=== PATIENT | male | born 1935 | race Caucasian/White ===

== ENCOUNTER → 2017-03-14 | Day surgery (SDC) | payer MEDICARE, BC ==
[~2017-03-14] MED LIST: AMLO5TAB2 PO; ASPI325T8 PO; CLOP75TA PO; CLOP75TA57 PO; DOCU-109 PO; GLIP5TAB10 PO; HYDR-2678 PO; IV RINGERS,LACTATED 1000ML 1,000 ML IV ONE; LIDOCAINE 2% PF Vial for OR 5 ML VIAL. ONE; LOVA10TA PO; METF-620 PO; OMEP20CA9 PO; PROPOFOL 20 ML IV ONE; SITA50TA PO; TAMS0.4C97 PO; VALS40TA2 PO
[2017-03-14 16:55] VITALS: BP 150/78
== END | disposition home or self-care (01) ==
LOC: ENDOS 14:41
PROVIDERS: ATTEND Internal Medicine Gastroenterology
DX: K29.50 Unspecified chronic gastritis without bleeding (principal); I25.10 Atherosclerotic heart disease of native coronary artery without angina pectoris; I10 Essential (primary) hypertension; K21.9 Gastro-esophageal reflux disease without esophagitis; E11.9 Type 2 diabetes mellitus without complications; F17.200 Nicotine dependence, unspecified, uncomplicated; Z87.442 Personal history of urinary calculi; Z86.39 Personal history of other endocrine, nutritional and metabolic disease; Z86.73 Personal history of transient ischemic attack (TIA), and cerebral infarction without residual deficits; Z86.69 Personal history of other diseases of the nervous system and sense organs; Z88.6 Allergy status to analgesic agent
CPT/HCPCS: 43235; J2704; J2001

== ENCOUNTER → 2017-10-24 | Outpatient (CLI) | payer MEDICARE, BC ==
[2017-10-24 12:30] LABS: ALBUMIN 3.8 g/dL (3.4-5.0); ALBUMIN/GLOBULIN RATIO 1.1 (1.0-1.7); ALK PHOS 96 U/L (46-116); ALT (SGPT) 20 U/L (16-63); ANION GAP 5 (6-14); AST (SGOT) 21 U/L (15-37); BLOOD UREA NITROGEN 15 mg/dL (8-26); BUN/CREATININE RATIO 15 (6-20); CALCIUM 9.5 mg/dL (8.5-10.1); CARBON DIOXIDE 29 mmol/L (21-32); CHLORIDE 105 mmol/L (98-107); GFR 71.4; GLUCOSE 186 mg/dL (70-99); POTASSIUM 4.3 mmol/L (3.5-5.1); SODIUM 139 mmol/L (136-145); TOTAL BILIRUBIN 0.5 mg/dL (0.2-1.0); TOTAL PROTEIN 7.3 g/dL (6.4-8.2)
[2017-10-24 12:41] LABS: THYROID STIM HORMONE (TSH) 1.659 uIU/mL (0.358-3.74)
[2017-10-24 13:11] LABS: VITAMIN-B12 688 pg/mL (247-911)
== END | disposition home or self-care (01) ==
LOC: LAB 11:46
DX: H54.62 Unqualified visual loss, left eye, normal vision right eye (principal); Z79.899 Other long term (current) drug therapy
CPT/HCPCS: 36415; 80053; 82306; 82607; 84443

== ENCOUNTER → 2017-10-27 | Outpatient (CLI) | payer MEDICARE, BC | END | disposition home or self-care (01) | LOC: MRI 11:39 | DX: H54.62 Unqualified visual loss, left eye, normal vision right eye (principal); R51 Headache | CPT/HCPCS: 70540; 70551 ==

== ENCOUNTER → 2019-08-27 | Outpatient (CLI) | payer MEDICARE ==
[2017-03-14 16:55] VITALS: BP 150/78
[~2019-08-27] MED LIST changes: +AMLO5TAB10 PO; -AMLO5TAB2 PO; -IV RINGERS,LACTATED 1000ML 1,000 ML IV ONE; -LIDOCAINE 2% PF Vial for OR 5 ML VIAL. ONE; -METF-620 PO; +METF10007 PO; +OMEP20CA16 PO; -OMEP20CA9 PO; -PROPOFOL 20 ML IV ONE
--- NOTE | 2019-08-27 17:12 | KCIC ---
Chest CT without contrast Clinical indications: Hemoptysis. Left-sided chest pain. History of asbestos exposure. COMPARISON: October 14, 2015. TECHNIQUE: Noncontrast helical CT scanning of the chest was performed. Without IV contrast, the sensitivity to detect organ pathology is decreased. PQRS compliance Statement One or more of the following individualized dose reduction techniques were utilized for this study: 1. Automated exposure control 2. Adjustment of the mA and/or kV according to patient size 3. Use of iterative reconstruction technique FINDINGS: No enlarging thoracic lymphadenopathy is seen. No focal aneurysmal dilatation of the thoracic aorta is seen. 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 The heart size is normal and no pericardial effusion is evident. 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 No pleural effusion is seen. 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 There is peripheral residual infiltrate within the anterior lateral basal segment of the right lower lobe which is stable. There are small subcentimeter right lung nodules which are stable. No new lung nodule or new lung mass is seen. Bilateral linear scarring is seen which is stable. No new lung consolidation or new lung mass is evident. There is focal nodular wall thickening of the posterior wall of the distal trachea. This is new. The proximal bronchial tree is patent. There is debris present within the upper thoracic esophagus. There is mild wall thickening of the esophagus. There is mild dilatation of the thoracic esophagus. No adrenal mass is evident. No lytic process is seen. IMPRESSION: Bilateral calcified pleural plaques without pleural mass or pleural effusion. This may be seen with asbestos exposure. There has been a mild increase in the peripheral interstitial lung disease within the left upper lobe consistent with an increase in pulmonary fibrosis here. Subcentimeter right lung nodules are stable consistent with a benign finding. No new lung mass or lung nodule is evident. No new consolidative lung infiltrate is seen. 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 Normal heart size. Mild wall thickening of the esophagus which may be seen with reflux esophagitis. Mild dilatation of the esophagus and debris is seen within the lumen of the thoracic esophagus. This may be secondary to esophageal dysmotility or related to reflux. An esophageal stricture is also possible if there is a clinical history of dysphagia. New finding of mild nodular soft tissue thickening of the posterior wall of the distal trachea. This most likely is secondary to adherent mucus. Electronically signed by: Bradley De La Torre MD (08/27/2019 5:09 PM) [facility] [place]
== END ==
LOC: KCIC CT 10:18
PROVIDERS: ATTEND Internal Medicine Pulmonary Disease
DX: J92.9 Pleural plaque without asbestos (principal); J84.10 Pulmonary fibrosis, unspecified; I25.10 Atherosclerotic heart disease of native coronary artery without angina pectoris; J84.89 Other specified interstitial pulmonary diseases; R13.10 Dysphagia, unspecified
CPT/HCPCS: 71250